=== PATIENT | male | born 1995 | race Two or more races ===

== ENCOUNTER → 2020-04-29 | Outpatient (CLI) | payer OTHER | END | disposition home or self-care (01) | LOC: LAB 11:08 | PROVIDERS: ATTEND Nurse Practitioner Family | DX: U07.1 COVID-19 (principal) | CPT/HCPCS: C9803; U0003 ==

== ENCOUNTER → 2020-05-13 | Outpatient (CLI) | payer OTHER | END | disposition home or self-care (01) | LOC: LAB 14:25 | PROVIDERS: ATTEND Physician Assistant | DX: U07.1 COVID-19 (principal) | CPT/HCPCS: C9803; U0003 ==